=== PATIENT | female | born 2000 | race Caucasian/White ===

== ENCOUNTER 2023-08-25 12:55 | Emergency (ER) | payer MEDICAID ==
[~2023-08-25] VITALS: Ht 162.6 cm; Wt 106.6 kg
[2023-08-25 13:49] VITALS: BP 142/74; PULSE 91; RESP 18; TEMP 98; O2SAT 97
[2023-08-25] MEDS ORDERED: IBUP-2213 PO (14:24)
[2023-08-25] MEDS ORDERED: ONDA8TAB87 PO (14:24)
[2023-08-25] MEDS ORDERED: MEDR10TA PO (14:24)
== END 2023-08-25 14:32 | disposition home or self-care (01) ==
LOC: MED 12:55
DX: N93.8 Other specified abnormal uterine and vaginal bleeding (principal); Z79.899 Other long term (current) drug therapy; Z79.1 Long term (current) use of non-steroidal anti-inflammatories (NSAID)
CPT/HCPCS: 81025; 99283